=== PATIENT | male | born 1970 | race African-American/Black ===

== ENCOUNTER 2017-02-18 09:44 | Emergency (ER) | payer SELFPAY ==
[~2017-02-18] VITALS: Ht 185.4 cm; Wt 109.0 kg
[2017-02-18 10:22] VITALS: BP 141/98
== END 2017-02-18 10:22 | disposition home or self-care (01) | DRG 149 ==
LOC: ED 09:44
DX: R42 Dizziness and giddiness (principal); R11.0 Nausea

== ENCOUNTER 2020-06-14 11:50 | Observation (INO) | payer SELFPAY ==
[~2020-06-14] VITALS: Ht 185.4 cm; Wt 120.0 kg
--- NOTE | 2020-06-14 11:50 | NUR ---
TO ROOM 08 FOR TRIAGE
[2020-06-14 12:40] LABS: HEMATOCRIT 43.3 % (39.0-50.0); HEMOGLOBIN 14.8 g/dl (14.0-18.0); IMMATURE GRANULOCYTES 0.2 % (0.0-5.0); MEAN CELL VOLUME 66.8 fL CALC (80.0-100.0); MEAN CORPUSCULAR HGB 22.8 pG CALC (26.0-32.0); MEAN CORPUSCULAR HGB CONC 34.2 g/dL CAL (32.0-36.0); NEUT# 2.23 thou/uL (1.82-7.42); RED BLOOD COUNT 6.48 mill/uL (4.70-6.10); RED CELL DISTRI WIDTH 17.2 % (11.5-15.5)
--- NOTE | 2020-06-14 12:50 | NUR ---
Reassessment of patient completed. No distress noted.
[2020-06-14 12:53] LABS: ALKALINE PHOSPHATASE 152 u/l (38-126); BILIRUBIN, TOTAL 1.4 mg/dL (0.0-1.4); BUN 17 mg/dL (9-20); BUN/CREATININE RATIO 15 (12-20 (CALC)); CARBON DIOXIDE 20 mmol/l (22-30); CHLORIDE 95 mmol/l (95-108); CREATININE 1.2 mg/dL (0.7-1.3); GFR > 60 ML/MIN (>=60 (CALC)); GFR FOR AFR.AMER. > 60 ML/MIN (>=60 (CALC)); LIPASE 132 u/l (23-300); SGOT/AST 78 u/l (17-59); SODIUM 130 mmol/l (137-146); TOTAL PROTEIN 9.5 g/dL (6.3-8.2)
[2020-06-14 13:03] LABS: ANION GAP 21 (6-22 (CALC))
--- NOTE | 2020-06-14 13:50 | NUR ---
Reassessment of patient completed. No distress noted.
--- NOTE | 2020-06-14 14:50 | NUR ---
Reassessment of patient completed. No distress noted.
[2020-06-14 15:32] LABS: ANION GAP 19 (6-22 (CALC)); BUN 17 mg/dL (9-20); BUN/CREATININE RATIO 16 (12-20 (CALC)); CARBON DIOXIDE 19 mmol/l (22-30); CHLORIDE 102 mmol/l (95-108); CREATININE 1.1 mg/dL (0.7-1.3); GFR > 60 ML/MIN (>=60 (CALC)); GFR FOR AFR.AMER. > 60 ML/MIN (>=60 (CALC)); POTASSIUM 5.1 mmol/l (3.5-5.1); SODIUM 134 mmol/l (137-146)
--- NOTE | 2020-06-14 15:50 | NUR ---
Reassessment of patient completed. No distress noted.
--- NOTE | 2020-06-14 16:50 | NUR ---
Reassessment of patient completed. No distress noted.
--- NOTE | 2020-06-14 17:40 | NUR ---
Reassessment of patient completed. No distress noted.
--- NOTE | 2020-06-14 17:59 | NUR ---
ATTEMPTED TO CALL REPORT X2. NURSE IN PATIENT ROOM. NURSE WILL CALL BACK.
--- NOTE | 2020-06-14 18:10 | NUR ---
REPORT RECEIVED FROM HARLEY HE
--- NOTE | 2020-06-14 18:10 | NUR ---
REPORT CALLED TO HARLEY SUAZO IN SBAR FORMAT. ALL QUESTIONS ANSWERED.
--- NOTE | 2020-06-14 18:16 | NUR ---
PT ARRIVED TO MED/SURG ROOM 274 IN STABLE CONDITION VIA WHEELCHAIR ACCOMPANIED BY HARLEY HE;PT AMBULATED TO BEDSIDE WITH A STEADY GAIT;WT AND VS OBTAINED AT THIS TIME;PT A&O X3,ORIENTED TO ROOM AND CALL LIGHT SYSTEM;PT DENIES ANY CURRENT PAIN OR DISCOMFORTS,PAIN SCALE AND REPORTING EDUCATED;RESPIRATIONS EVEN AND UNLABORED ON RA;#20G TO RAC INFUSING NS @ 100ML/HR PER ORDER,SITE APPEARS HEALTHY;TELE MONITORING IN PLACE;MEAL TRAY PROVIDED;ALLERGY BAND APPLIED;PT ENCOURAGED TO CALL FOR ASSISTANCE IF NEEDED;FALL PRECAUTIONS IN PLACE WITH BED IN THE LOWEST POSITION AND CALL LIGHT IN REACH;WILL CONTINUE TO MONITOR
--- NOTE | 2020-06-14 18:55 | NUR ---
REPORT FROM THEODORA STEELE. ASSUMED PT CARE.
--- NOTE | 2020-06-14 19:15 | NUR ---
PT NOTED RESTING IN BED WATCHING TV. ALERT AND ORIENTED X4. PT REQUESTED TO BE DISCONNECTED FROM IVF FOR SHOWER. PT DISCONNECTED AT THIS TIME AND SET UP FOR SHOWER. PT AMBULATORY WITH STEADY GAIT AND INDEPENDENT WITH ADLS. PRESIDENT COLLEGE OR UNIVERSITY REMOVED AT THIS TIME. IV SITE SECURED WITH SHOWER GUARD. DISCUSSED POC AND SAFETY PRECAUTIONS. PT VERBALIZED UNDERSTANDING. NO CURRENT WANTS OR NEEDS. PT DENIES ANY PAIN OR DISCOMFORT. CALL LIGHT WITHIN REACH. WILL CONTINUE TO MONITOR.
[2020-06-14 19:41] VITALS: BP 152/96
[2020-06-14 23:47] VITALS: BP 145/96
--- NOTE | 2020-06-14 23:54 | NUR ---
PT RESTING IN BED WITH EYES CLOSED. NO APPARENT DISTRESS NOTED. RESPIRATIONS EVEN AND UNLABORED. CALL LIGHT WITHIN REACH. WILL CONTINUE TO MONITOR.
--- NOTE | 2020-06-15 03:13 | NUR ---
PT RESTING IN BED WITH EYES CLOSED. NO APPARENT DISTRESS NOTED. RESPIRATIONS EVEN AND UNLABORED. CUFF SETTER LOCKSTITCH IN PLACE. IVF INFUSING WITHOUT DIFFICULTY. CALL LIGHT WITHIN REACH. WILL CONTINUE TO MONITOR.
[2020-06-15 04:00] VITALS: BP 144/96
--- NOTE | 2020-06-15 07:10 | NUR ---
PATIENT RESTING IN BED AT THIS TIME 5 UNITS OF SLIDING SCALE HUMALOG INSULIN GIVEN AT THIS TIME FOR ACCU CHECK OF 339. ADMEASURER DONE AT THIS TIME SEE INTERVENTIONS. PATIENT DENEIS ANY PAIN LUNG SOUNDS ARE CLEAR. SIDRAILS ARE UP X 2 CALL LIGHT AND PERSONAL ITEMS ARE WITHIN REACH.
[2020-06-15 07:30] VITALS: BP 142/93
[2020-06-15 10:41] VITALS: BP 152/94
--- NOTE | 2020-06-15 11:39 | NUR ---
PATIENT SITTING UP IN BED AT THIS TIME. PATIENT DEINES ANY PAIN AND OR NEEDS. CALL LIGHT IS WITH REACH.
[2020-06-15 12:55] LABS: ALBUMIN 4.1 g/dL (3.2-5.0); ALKALINE PHOSPHATASE 76 u/l (38-126); BUN 11 mg/dL (9-20); BUN/CREATININE RATIO 12 (12-20 (CALC)); CHLORIDE 99 mmol/l (95-108); CREATININE 0.9 mg/dL (0.7-1.3); GFR > 60 ML/MIN (>=60 (CALC)); GFR FOR AFR.AMER. > 60 ML/MIN (>=60 (CALC)); POTASSIUM 4.2 mmol/l (3.5-5.1); SGOT/AST 48 u/l (17-59); SODIUM 131 mmol/l (137-146)
[2020-06-15 12:58] LABS: ANION GAP 13 (6-22 (CALC)); BILIRUBIN, TOTAL 0.7 mg/dL (0.0-1.4); CARBON DIOXIDE 23 mmol/l (22-30); TOTAL PROTEIN 7.5 g/dL (6.3-8.2)
[2020-06-15 15:15] VITALS: BP 159/99
--- NOTE | 2020-06-15 15:40 | NUR ---
PATIENT RESTING IN BED AT THIS TIME. PATIENT READING INFORMATION ON NEW ONSET DIABETES AND IS ASKING APPROPIATE QUESTIONS. SIDERAILS ARE UP X1 CALL LIGHT IS WITHIN REACH DENIES ANY NEEDS AT THIS TIME.
[2020-06-15 19:00] VITALS: BP 140/94
--- NOTE | 2020-06-15 20:30 | NUR ---
PT IN BED RESTING COMFORTABLY. ALERT AND ORIENTED X 3. BREATHING EVEN AND UNLABORED. PT HS BS WAS 392, PT WAS COVERED WITH 5U OF FAST ACTING INSULIN AND 25U OF LONG ACTING INSULIN. P TOLERATED WELL. SKILLE INSTRUCTION RELATED TO MINIMIZING CARBS AND SODIUM FROM DIET. PT INDICATED UNDERSTANDING TO INSTRUCTION GIVEN. SAFETY PRECAUTIONS IN PLACE. BED IN LOWEST POSITION, CALL LIGHT WIHIN REACH. WILL MONITOR
[2020-06-16] VITALS: BP 128/81
--- NOTE | 2020-06-16 00:45 | NUR ---
PT RESTING QUIETLY IN BED WITH HI EYES CLOSED. NO COMPLAINTS VOICED AT THIS TIME. NO S/S OF DISTRESS NOTED. WILL CONTINUE TO MONITOR
[2020-06-16 04:00] VITALS: BP 145/92
--- NOTE | 2020-06-16 04:00 | NUR ---
PT RESTING QUIEYTLY IN BED, SOFT SNORING NOTED. PT DENIES PAIN, NO S/S OF DISTRESS NOTED. NO S/S OF HYPOGLYCEMIA AT THIS TIME. PT WAS ADJUSTED ON HIS INSULIN YESTERDAY AT HS, WILL REEVALUATE BS AND EFFECTIVENESS OF INSULIN ON BREAKFAST BS. SAFETY PRECAUTIONS IN PLACE, WILL CONTINUE TO MONITOR
[2020-06-16 05:37] LABS: MEAN CELL VOLUME 66.7 fL CALC (80.0-100.0); MEAN CORPUSCULAR HGB 20.6 pG CALC (26.0-32.0); MEAN CORPUSCULAR HGB CONC 30.8 g/dL CAL (32.0-36.0); RED BLOOD COUNT 5.59 mill/uL (4.70-6.10); RED CELL DISTRI WIDTH 15.2 % (11.5-15.5)
[2020-06-16 05:44] LABS: HEMATOCRIT 37.3 % (39.0-50.0); HEMOGLOBIN 11.5 g/dl (14.0-18.0)
[2020-06-16 06:06] LABS: ANION GAP 10 (6-22 (CALC)); BUN 11 mg/dL (9-20); BUN/CREATININE RATIO 13 (12-20 (CALC)); CARBON DIOXIDE 22 mmol/l (22-30); CHLORIDE 103 mmol/l (95-108); CREATININE 0.8 mg/dL (0.7-1.3); GFR > 60 ML/MIN (>=60 (CALC)); GFR FOR AFR.AMER. > 60 ML/MIN (>=60 (CALC)); MAGNESIUM 1.9 mg/dL (1.6-2.3); POTASSIUM 3.9 mmol/l (3.5-5.1); SODIUM 130 mmol/l (137-146)
[2020-06-16 07:00] VITALS: BP 142/83
--- NOTE | 2020-06-16 07:05 | NUR ---
PATIENT LAYINGIN BED AT THIS TIME ALERT AND ORIENTED PLASTER MODEL AND MOLD MAKER DONE SEE INTERVENTIONS. 3 UNITS OF HUMALOG GIVEN FOR BLOOD GLUCOSE OF 300 AT THIS TIME. PATIENT DAJUAN ANY COMPLAINTS AT THIS TIME. SIDERAILS ARE UP CALL LIGHT IS WIHTIN REACH.
[2020-06-16 11:05] VITALS: BP 121/79
[2020-06-16] MEDS ORDERED: GLIPIZIDE XL10 MG PO (11:10)
[2020-06-16] MEDS ORDERED: METFORMIN500 M2 PO (11:10)
[2020-06-16] MEDS ORDERED: LISINOPRIL20 M1 PO (11:10)
[2020-06-16] MEDS ORDERED: LISINOPRIL10 MG PO (11:12)
--- NOTE | 2020-06-16 11:33 | NUR ---
PATIENT D/C'D AT THIS TIME. PATIENT DIABETIC EDUCATION GIVEN AT THIS TIME AND PATIENT VERBALIZES UNDERSTANDING OF DISCHARGE AND TEACHING AT THIS TIME.
--- NOTE | 2020-06-16 11:44 | NUR ---
Discharge instructions given. Patient verbalizes understanding of same. Discharged in stable condition via Wheelchair to Home with family. All belongings sent with pt.
== END 2020-06-16 11:42 | disposition home or self-care (01) | DRG 639 ==
LOC: ED 11:50 → ED-I 13:00 → ED 13:30 → MS2 13:31
PROVIDERS: Family Medicine; Nurse Practitioner; ADMIT Internal Medicine; ATTEND Internal Medicine
DX: E11.65 Type 2 diabetes mellitus with hyperglycemia (principal); I10 Essential (primary) hypertension; E87.5 Hyperkalemia; E78.5 Hyperlipidemia, unspecified; F17.210 Nicotine dependence, cigarettes, uncomplicated; T46.5X6A Underdosing of other antihypertensive drugs, initial encounter; Z91.128 Patient's intentional underdosing of medication regimen for other reason; Z20.822 Contact with and (suspected) exposure to COVID-19
CPT/HCPCS: G0378; J1650

== ENCOUNTER 2020-09-21 06:25 | Emergency (ER) | payer SELFPAY ==
[~2020-09-21 06:25] MED LIST: GLIPIZIDE XL10 MG PO; LISINOPRIL10 MG PO; LISINOPRIL20 M1 PO; METFORMIN500 M2 PO
[2020-09-21 06:55] LABS: HEMATOCRIT 39.7 % (39.0-50.0); HEMOGLOBIN 12.2 g/dl (14.0-18.0); IMMATURE GRANULOCYTES 0.4 % (0.0-5.0); MEAN CORPUSCULAR HGB 21.2 pG CALC (26.0-32.0); MEAN CORPUSCULAR HGB CONC 30.7 g/dL CAL (32.0-36.0); NEUT# 2.38 thou/uL (1.82-7.42); RED BLOOD COUNT 5.75 mill/uL (4.70-6.10); RED CELL DISTRI WIDTH 17.3 % (11.5-15.5)
[2020-09-21 07:10] LABS: ALBUMIN 4.3 g/dL (3.2-5.0); ALKALINE PHOSPHATASE 60 u/l (38-126); ANION GAP 13 (6-22 (CALC)); BILIRUBIN, TOTAL 0.5 mg/dL (0.0-1.4); BUN 13 mg/dL (9-20); BUN/CREATININE RATIO 14 (12-20 (CALC)); CARBON DIOXIDE 25 mmol/l (22-30); CHLORIDE 103 mmol/l (95-108); GFR > 60 ML/MIN (>=60 (CALC)); GFR FOR AFR.AMER. > 60 ML/MIN (>=60 (CALC)); POTASSIUM 3.9 mmol/l (3.5-5.1); SGOT/AST 21 u/l (17-59); TOTAL PROTEIN 7.4 g/dL (6.3-8.2)
[2020-09-21 07:20] LABS: SODIUM 137 mmol/l (137-146)
[2020-09-21] MEDS ORDERED: EPIPEN 2-P0.3 MG/0.3 IM (09:37)
[2020-09-21] MEDS ORDERED: OMNI-PAC300 MG PO (09:37)
[2020-09-21] MEDS ORDERED: PREDNISONE50 MG PO (09:37)
[2020-09-21] MEDS ORDERED: BACTRIM DS1 TAB PO (09:37)
[2020-09-21 09:52] VITALS: BP 159/86
== END 2020-09-21 09:50 | disposition home or self-care (01) | DRG 603 ==
LOC: ED 06:25
PROVIDERS: Emergency Medicine
DX: L03.211 Cellulitis of face (principal); K13.0 Diseases of lips; I10 Essential (primary) hypertension; E78.00 Pure hypercholesterolemia, unspecified; F17.200 Nicotine dependence, unspecified, uncomplicated
CPT/HCPCS: Q9967

== ENCOUNTER 2022-02-07 06:37 | Emergency (ER) | payer SELFPAY ==
[2022-02-07] VITALS (7 sets, daily range): BP systolic 172–201; BP diastolic 111–129
[~2022-02-07] VITALS: Ht 185.4 cm; Wt 114.0 kg
[~2022-02-07 06:37] MED LIST changes: +BACTRIM DS1 TAB PO; +EPIPEN 2-P0.3 MG/0.3 IM; +OMNI-PAC300 MG PO; +PREDNISONE50 MG PO
[2022-02-07] MEDS ORDERED: OMNI-PAC300 MG PO (07:29)
[2022-02-07] MEDS ORDERED: PREDNISONE50 MG PO (07:29)
[2022-02-07] MEDS ORDERED: ALL DAY10 MG PO (07:29)
== END 2022-02-07 08:10 | disposition home or self-care (01) | DRG 918 ==
LOC: ED 06:37
DX: T49.4X1A Poisoning by keratolytics, keratoplastics, and other hair treatment drugs and preparations, accidental (unintentional), initial encounter (principal); L24.5 Irritant contact dermatitis due to other chemical products; I10 Essential (primary) hypertension; F17.210 Nicotine dependence, cigarettes, uncomplicated